=== PATIENT | female | born 1995 | race Caucasian/White ===

== ENCOUNTER 2019-05-24 04:26 | Emergency (ER) | payer MEDICAID ==
[~2019-05-24] VITALS: Ht 165.1 cm; Wt 75.0 kg
[2019-05-24 04:33] VITALS: BP 127/83
== END 2019-05-24 06:50 | disposition left against medical advice (07) ==
LOC: ER 06:07
DX: M79.602 Pain in left arm (principal); Z53.21 Procedure and treatment not carried out due to patient leaving prior to being seen by health care provider